=== PATIENT | female | born 1980 | race Caucasian/White ===

== ENCOUNTER → 2024-06-08 | Day surgery (SDC) | payer OTHER | END | disposition home or self-care (01) | LOC: JRADUS-SUR 07:56 | PROVIDERS: ATTEND Obstetrics & Gynecology | PROC: 0HBV3ZX Excision of Bilateral Breast, Percutaneous Approach, Diagnostic (ICD-10-PCS; principal; 2024-06-08) | DX: D24.1 Benign neoplasm of right breast (principal); D24.2 Benign neoplasm of left breast | CPT/HCPCS: 19083; 19084; 76642-TC-LT; 76942-TC; 77065-TC; 87899; 88305-TC; A4648; G0279-TC ==